=== PATIENT | female | born 1980 | race Caucasian/White ===

== ENCOUNTER → 2019-08-28 | Outpatient (CLI) | payer BC ==
[~2019-08-28] MED LIST: GADOTERATE 7.5 MMOL/15ML VIAL. IVP ONE
--- NOTE | 2019-08-28 14:22 | RAD ---
BRAIN WO/W CONTRAST Date: 08/28/2019 11:15 AM Indication: Chronic headaches Comparison: None. Technique: Multiplanar multisequence MRI of the brain was performed with and without intravenous contrast using the standard protocol. 12 cc Dotarem contrast was administered intravenously during the exam. Findings: No acute infarct. No acute or chronic hemorrhage. The ventricles are normal in size and configuration without hydrocephalus. No abnormal enhancement. The scalp and calvarium are normal. The pituitary and sella are normal. No Chiari malformation. The visualized upper cervical spine is normal. The visualized orbits and globes are normal. Mild ethmoid sinus disease. The mastoid air cells are clear. Normal flow voids within the vertebral, basilar, and internal carotid arteries indicating patency. IMPRESSION: 1. No acute infarct or hemorrhage. 2. No mass or abnormal enhancement. Electronically signed by: Cristobal Portillo MD (08/28/2019 2:19 PM) [id number]
== END | disposition home or self-care (01) ==
LOC: MRI 11:07
PROVIDERS: ATTEND Psychiatry & Neurology Neurology
DX: J32.2 Chronic ethmoidal sinusitis (principal)
CPT/HCPCS: 70553; A9575

== ENCOUNTER → 2019-11-15 | Outpatient (CLI) | payer BC ==
--- NOTE | 2019-11-15 13:25 | EKG ---
[facility] [address] [place] [id number] Test Date: 2019-11-15 Test Time: 13:15:04 Pat Name: KERRIE MARSH Department: Room: Gender: F [employer]: : [id number] Requested By: DILMA DEL REAL Order Number: [id number] Reading MD: Measurements Intervals [place] Rate: 61 P: 55 AK: 176 QRS: 73 QRSD: 82 T: 67 QT: 386 QTc: 390 Interpretive Statements SINUS RHYTHM NORMAL ECG RI6.02 No previous ECG available for comparison
== END ==
LOC: EKG 12:53
PROVIDERS: ATTEND Psychiatry & Neurology Neurology
DX: R20.0 Anesthesia of skin (principal)
CPT/HCPCS: 93005